=== PATIENT | female | born 1965 | race Caucasian/White ===

== ENCOUNTER → 2017-02-06 | Outpatient (REF) | payer BC ==
[~2017-02-06] MED LIST: ALLE180T33 PO; MOME50SP; OMEP40CA2 PO; ORTHTAB6 PO; VALA500T PO; VITA100T20 PO; ZINC10LO4 MT
== END ==
LOC: M SFHCPLAZ 09:38
PROVIDERS: ATTEND Nurse Practitioner Adult Health
DX: J02.9 Acute pharyngitis, unspecified (principal); R53.83 Other fatigue

== ENCOUNTER → 2017-03-27 | Outpatient (REF) | payer BC | LOC: M SFHCWAGY 08:19 | PROVIDERS: ATTEND Nurse Practitioner Women's Health | DX: Z12.4 Encounter for screening for malignant neoplasm of cervix (principal); R87.612 Low grade squamous intraepithelial lesion on cytologic smear of cervix (LGSIL) ==

== ENCOUNTER → 2017-03-27 | Outpatient (CLI) | payer BC ==
--- NOTE | 2017-03-27 10:13 | REPMRS ---
Patient History The patient states she had a clinical breast exam in 03/17 Family history of ovarian cancer in sister under age 50, breast cancer in mother at age 65, and breast cancer in maternal grandmother at age 50 or over. Taking hormonal contraceptives for 32 years. Digital Woman Screen Mammo: March 27, 2017 - Exam #: [id number] Bilateral CC and MLO view(s) were taken. Technologist: Dea Batres, Technologist Prior study comparison: March 05, 2016, digital woman screen mammo performed at [facility]. March 03, 2015, digital woman screen mammo performed at [facility]. FINDINGS: The breast tissue is heterogeneously dense. This may lower the sensitivity of mammography. There has been no change in the appearance of the mammogram from the prior studies. There is a moderate amount of residual fibroglandular tissue which is fairly symmetric. There is no interval development of dominant mass, areas of architectural distortion, or clustered microcalcification typical of malignancy. ASSESSMENT: BI-RADS/ACR category 1 mammogram. Negative. Given the dense breast parenchyma and family history, recommend MRI breasts. Recommendation Routine screening mammogram in 1 year (for women over age 40). This mammogram was interpreted with the aid of an FDA-approved computer-aided dectection system. Electronically Signed By: Gadiel Bhatt MD 03/27/17 [id number]
== END ==
LOC: M WHC 08:02
PROVIDERS: ATTEND Nurse Practitioner Women's Health
DX: Z12.31 Encounter for screening mammogram for malignant neoplasm of breast (principal)

== ENCOUNTER → 2017-03-31 | Outpatient (REF) | payer BC | LOC: M SFHCWAGY 14:06 | PROVIDERS: ATTEND Nurse Practitioner Women's Health | DX: R87.612 Low grade squamous intraepithelial lesion on cytologic smear of cervix (LGSIL) (principal); R87.810 Cervical high risk human papillomavirus (HPV) DNA test positive ==

== ENCOUNTER → 2017-07-21 | Outpatient (REF) | payer BC ==
[~2017-07-21] MED LIST changes: +ORTHTAB15 PO; -ORTHTAB6 PO; -VALA500T PO; +VALA500T2 PO
== END ==
LOC: M LAB REF 15:53
PROVIDERS: ATTEND Nurse Practitioner Adult Health
DX: J02.9 Acute pharyngitis, unspecified (principal)

== ENCOUNTER → 2017-09-19 | Outpatient (CLI) | payer BC ==
[2017-09-19 09:16] LABS: MEAN CORPUSCULAR HEMOGLOBIN 30.7 pg (27.0-33.0); MEAN CORPUSCULAR HGB CONC 33.6 g/dl (32.0-36.5); MEAN CORPUSCULAR VOLUME 91.4 fl (80.0-96.0); PLATELET COUNT, AUTOMATED 359 10^3/uL (150-450); RED CELL DISTRIBUTION WIDTH 12.1 % (11.5-14.5); WHITE BLOOD COUNT 5.9 10^3/uL (4.0-10.0)
[2017-09-19 10:01] LABS: ALBUMIN 3.5 GM/DL (3.2-5.2); ALBUMIN/GLOBULIN RATIO 1.09 (1.00-1.93); ALKALINE PHOSPHATASE 56 U/L (45-117); ALT/SGPT 23 U/L (12-78); ANION GAP 5 MEQ/L (8-16); AST/SGOT 17 U/L (15-37); BILIRUBIN,TOTAL 1.4 MG/DL (0.2-1.0); BLOOD UREA NITROGEN 14 MG/DL (7-18); CALCIUM LEVEL 8.8 MG/DL (8.5-10.1); CARBON DIOXIDE LEVEL 31 MEQ/L (21-32); CHLORIDE LEVEL 105 MEQ/L (98-107); CHOLESTEROL LEVEL 197 MG/DL (<200); FERRITIN 44 NG/ML (8-252); GLOMERULAR FILTRATION RATE > 60.0 (>58); GLUCOSE, FASTING 82 MG/DL (70-105); PERCENT SATURATION 47.7 % (13.2-45.0); POTASSIUM SERUM 4.7 MEQ/L (3.5-5.1); SODIUM LEVEL 141 MEQ/L (136-145); TOTAL IRON BINDING CAPACITY 348 UG/DL (250-450); TOTAL PROTEIN 6.7 GM/DL (6.4-8.2); TRIGLYCERIDES LEVEL 112 MG/DL (<150)
[2017-09-19 11:41] LABS: VITAMIN B12 LEVEL 677 PG/ML (247-911)
== END ==
LOC: M WUC 08:05
PROVIDERS: ATTEND Nurse Practitioner Adult Health
DX: Z00.00 Encounter for general adult medical examination without abnormal findings (principal); R53.83 Other fatigue; E55.9 Vitamin D deficiency, unspecified

== ENCOUNTER → 2017-12-09 | Outpatient (CLI) | payer BC ==
[2017-12-15 14:11] LABS: STREP PNEUMO TYPE 1 0.1 ug/mL (>1.3); STREP PNEUMO TYPE 12F 0.3 ug/mL (>1.3); STREP PNEUMO TYPE 14 1.5 ug/mL (>1.3); STREP PNEUMO TYPE 18C 2.5 ug/mL (>1.3); STREP PNEUMO TYPE 19A >30.4 ug/mL (>1.3); STREP PNEUMO TYPE 19F >42.9 ug/mL (>1.3); STREP PNEUMO TYPE 23F 0.5 ug/mL (>1.3); STREP PNEUMO TYPE 3 3.8 ug/mL (>1.3); STREP PNEUMO TYPE 4 0.4 ug/mL (>1.3); STREP PNEUMO TYPE 6B 17.3 ug/mL (>1.3); STREP PNEUMO TYPE 7F 0.7 ug/mL (>1.3); STREP PNEUMO TYPE 8 >27.2 ug/mL (>1.3); STREP PNEUMO TYPE 9N 9.9 ug/mL (>1.3); STREP PNEUMO TYPE 9V 10.5 ug/mL (>1.3)
== END ==
LOC: M WUC 17:24
DX: J32.9 Chronic sinusitis, unspecified (principal)

== ENCOUNTER → 2018-01-08 | Outpatient (REF) | payer BC ==
[2018-01-13 00:06] LABS: EBV PCR QUANTITATIVE Negative copies/mL (Negative)
== END ==
LOC: M SFHCPLAZ 12:05
DX: R53.83 Other fatigue (principal)
CPT/HCPCS: 87798

== ENCOUNTER → 2018-02-13 | Outpatient (CLI) | payer BC | LOC: M RAD 08:55 | DX: J01.01 Acute recurrent maxillary sinusitis (principal) | CPT/HCPCS: 70486 ==

== ENCOUNTER → 2018-04-23 | Outpatient (CLI) | payer BC | LOC: M WHC 08:09 | DX: Z12.31 Encounter for screening mammogram for malignant neoplasm of breast (principal); Z80.3 Family history of malignant neoplasm of breast | CPT/HCPCS: 77067 ==

== ENCOUNTER → 2018-05-11 | Outpatient (REF) | payer BC | LOC: M SFHCWAGY 15:31 | DX: R87.612 Low grade squamous intraepithelial lesion on cytologic smear of cervix (LGSIL) (principal) | CPT/HCPCS: 88304 ==

== ENCOUNTER → 2018-10-08 | Outpatient (CLI) | payer BC ==
[2018-10-08 09:53] LABS: ALBUMIN/GLOBULIN RATIO 1.43 (1.00-1.93); ALKALINE PHOSPHATASE 76 U/L (45-117); ALT/SGPT 33 U/L (12-78); ANION GAP 5 MEQ/L (8-16); AST/SGOT 28 U/L (7-37); BILIRUBIN,TOTAL 1.3 MG/DL (0.2-1.0); BLOOD UREA NITROGEN 20 MG/DL (7-18); CALCIUM LEVEL 9.9 MG/DL (8.5-10.1); CARBON DIOXIDE LEVEL 32 MEQ/L (21-32); CHLORIDE LEVEL 106 MEQ/L (98-107); CHOLESTEROL LEVEL 197 MG/DL (<200); CHOLESTEROL RISK RATIO 2.164 (<5); CREATININE FOR GFR 0.82 MG/DL (0.55-1.30); GLOMERULAR FILTRATION RATE > 60.0 (>51); GLUCOSE, FASTING 90 MG/DL (70-100); HDL CHOLESTEROL 91 MG/DL (>40); LDL CHOLESTEROL 95 MG/DL (<100); NON-HDL-C 106 MG/DL; POTASSIUM SERUM 5.1 MEQ/L (3.5-5.1); SODIUM LEVEL 143 MEQ/L (136-145); THYROID STIMULATING HORMONE 0.977 uIU/ML (0.358-3.740); TOTAL PROTEIN 6.8 GM/DL (6.4-8.2); TRIGLYCERIDES LEVEL 57 MG/DL (<150)
[2018-10-08 10:02] LABS: TOTAL 25(OH) VITAMIN D 46.2 NG/ML (30.0-100.0)
== END ==
LOC: M WUC 08:03
DX: Z00.00 Encounter for general adult medical examination without abnormal findings (principal); E55.9 Vitamin D deficiency, unspecified
CPT/HCPCS: 84443

== ENCOUNTER → 2018-10-26 | Outpatient (CLI) | payer BC ==
[~2018-10-26] MED LIST changes: -ALLE180T33 PO; -MOME50SP; -OMEP40CA2 PO; -ORTHTAB15 PO; +PROHANCE 279.3MG/ML 15ML VIAL (A9576) As Ordered; -VALA500T2 PO; -VITA100T20 PO; -ZINC10LO4 MT
== END ==
LOC: M RAD 08:17
DX: D24.1 Benign neoplasm of right breast (principal); N60.09 Solitary cyst of unspecified breast; Z80.3 Family history of malignant neoplasm of breast
CPT/HCPCS: A9576

== ENCOUNTER → 2018-12-18 | Outpatient (REF) | payer BC ==
[~2018-12-18] MED LIST changes: +ALLE180T33 PO; +MOME50SP; +OMEP40CA2 PO; +ORTH1TAB9 PO; -PROHANCE 279.3MG/ML 15ML VIAL (A9576) As Ordered; +VALA500T5 PO; +VITA100T20 PO; +ZINC10LO4 MT
[2018-12-18 17:40] LABS: FOLLICLE STIMULATING HORMONE 16.9 mIU/mL; LUTEINIZING HORMONE 3.9 mIU/mL
== END ==
LOC: M SFHCWAGY 14:43
PROVIDERS: ATTEND Nurse Practitioner Women's Health
DX: R23.2 Flushing (principal); N91.5 Oligomenorrhea, unspecified

== ENCOUNTER → 2019-04-23 | Outpatient (REF) | payer BC ==
[~2019-04-23] MED LIST changes: -VITA100T20 PO; +VITA100T51 PO
[2019-04-28 14:11] LABS: HPV HYBRID CAPTURE II Positive (Negative)
== END ==
LOC: M SFHCWAGY 08:52
PROVIDERS: ATTEND Nurse Practitioner Women's Health
DX: R87.612 Low grade squamous intraepithelial lesion on cytologic smear of cervix (LGSIL) (principal); Z12.4 Encounter for screening for malignant neoplasm of cervix
CPT/HCPCS: 87624; G0123

== ENCOUNTER → 2019-04-23 | Outpatient (CLI) | payer BC ==
--- NOTE | 2019-04-23 10:22 | REPMRS ---
Patient History The patient states she had a clinical breast exam in 03/2019. Family history of breast cancer at age 65 in mother, breast cancer at age 50 or over in maternal grandmother, ovarian cancer under age 50 in sister, endometrial cancer at age 50 or over in sister. Taking hormonal contraceptives for 34 years. 3D TOMOSYNTHESIS WAS PERFORMED. Digital Woman Screen Mammo: April 23, 2019 - Exam #: [id number] Bilateral CC and MLO view(s) were taken. Technologist: Dea Batres, Technologist Prior study comparison: April 23, 2018, digital woman screen mammo performed at [facility]. March 27, 2017, digital woman screen mammo performed at [facility]. FINDINGS: The breast tissue is heterogeneously dense. This may lower the sensitivity of mammography. There has been no change in the appearance of the mammogram from the prior studies. There is a moderate amount of residual fibroglandular tissue which is fairly symmetric. There is no interval development of dominant mass, areas of architectural distortion, or clustered microcalcification typical of malignancy. Assessment: BI-RADS/ACR category 1 mammogram. Negative Mammogram. Recommendation Routine screening mammogram in 1 year (for women over age 40). This mammogram was interpreted with the aid of an FDA-approved computer-aided dectection system. THE LIFETIME RISK OF BREAST CANCER IS 21.7 %, THEREFORE SUPPLEMENTAL SCREENING MRI OF THE BREASTS IS RECOMMENDED. Electronically Signed By: Gadiel Bhatt MD 04/23/19 [id number]
== END ==
LOC: M WHC 08:36
PROVIDERS: ATTEND Nurse Practitioner Women's Health
DX: Z12.31 Encounter for screening mammogram for malignant neoplasm of breast (principal); Z80.3 Family history of malignant neoplasm of breast; Z80.41 Family history of malignant neoplasm of ovary

== ENCOUNTER → 2019-05-28 | Outpatient (REF) | payer BC | LOC: M SFHCWAGY 10:24 | PROVIDERS: ATTEND Family Medicine | DX: R87.619 Unspecified abnormal cytological findings in specimens from cervix uteri (principal) ==

== ENCOUNTER → 2019-10-25 | Outpatient (CLI) | payer BC ==
[~2019-10-25] MED LIST changes: -OMEP40CA2 PO; +OMEP40CA97 PO; +PROHANCE 279.3MG/ML 15ML VIAL (A9576) As Ordered ONE
--- NOTE | 2019-10-25 10:59 | REP ---
MRI BILATERAL BREASTS WITH AND WITHOUT CONTRAST: COMPARISON: 10/26/2018 and mammogram 04/23/2019. [facility] lifetime risk of breast cancer 21.7%. TECHNIQUE: Multiple sequences obtained in the axial, coronal, and sagittal planes prior to and following the intravenous administration of 11 mL ProHance. Images are evaluated in the Stepcase software including dynamic post IV gadolinium axial T1 fat sat images, CAD images, color overlie images, subtraction images as well as MIP reconstruction images. Once again there is moderate fibroglandular tissue pattern bilaterally as seen on prior study. There are a few subcentimeter cysts in each breast. There is no axillary adenopathy. There is mild background parenchymal enhancement bilaterally. There is no suspicious enhancing mass or morphologic abnormality. IMPRESSION: BIRADS category 2 benign bilateral breast MRI. A few subcentimeter cysts scattered throughout both breasts. No suspicious enhancing mass or morphologic abnormality. Followup MRI of the breasts recommended in 1 year. Electronically Signed by Gadiel Bhatt MD 10/25/2019 02:54 P
== END ==
LOC: M RAD 07:59
PROVIDERS: ATTEND Nurse Practitioner Women's Health
DX: Z12.31 Encounter for screening mammogram for malignant neoplasm of breast (principal); Z80.3 Family history of malignant neoplasm of breast
CPT/HCPCS: A9576; C8908

== ENCOUNTER → 2019-11-09 | Outpatient (REF) | payer BC ==
[~2019-11-09] MED LIST changes: -PROHANCE 279.3MG/ML 15ML VIAL (A9576) As Ordered ONE
== END ==
LOC: M SFHCWAGY 17:13
PROVIDERS: ATTEND Nurse Practitioner Women's Health
DX: R30.0 Dysuria (principal)

== ENCOUNTER → 2020-03-29 | Outpatient (CLI) | payer BC | LOC: M LABSMTC 13:15 | PROVIDERS: ATTEND Family Medicine | DX: Z11.59 Encounter for screening for other viral diseases (principal); Z20.828 Contact with and (suspected) exposure to other viral communicable diseases ==

== ENCOUNTER → 2020-05-24 | Outpatient (REF) | payer BC ==
[2020-05-24 18:05] LABS: BASO % 0.6 % (0.0-1.0); EOS % 0.8 % (0.0-3.0); HEMOGLOBIN 13.3 g/dl (12.0-15.5); LYMPH # 1.9 10^3/uL (1.5-5.0); LYMPH % 36.3 % (24.0-44.0); MEAN CORPUSCULAR HEMOGLOBIN 32.3 pg (27.0-33.0); MEAN CORPUSCULAR HGB CONC 33.3 g/dl (32.0-36.5); MEAN CORPUSCULAR VOLUME 97.1 fl (80.0-96.0); MONO # 0.6 10^3/uL (0.0-0.8); MONO % 10.6 % (0.0-5.0); NEUTROPHILS # 2.7 10^3/uL (1.5-8.5); NEUTROPHILS % 51.5 % (36.0-66.0); PLATELET COUNT, AUTOMATED 344 10^3/uL (150-450); RED BLOOD COUNT 4.12 10^6/uL (4.00-5.40); WHITE BLOOD COUNT 5.3 10^3/uL (4.0-10.0)
[2020-05-24 18:10] LABS: MONO REFLEX EBV COMP NEGATIVE (NEGATIVE)
[2020-05-24 18:13] LABS: FREE T4 0.99 NG/DL (0.76-1.46)
[2020-05-27 13:07] LABS: EBV VIRAL CAPSID AG IgG >600.0 U/mL (0.0-17.9); EBV VIRAL CAPSID AG IgM <36.0 U/mL (0.0-35.9)
== END ==
LOC: M SFHCPLAZ 15:15
PROVIDERS: ATTEND Family Medicine
DX: R53.83 Other fatigue (principal)

== ENCOUNTER → 2020-06-26 | Outpatient (CLI) | payer BC ==
--- NOTE | 2020-07-20 15:43 | REPMRS ---
Patient History The patient states she had a clinical breast exam in May 2020. Family history of breast cancer at age 65 in mother, breast cancer at age 50 or over in maternal grandmother, ovarian cancer under age 50 in sister, endometrial cancer at age 50 or over in sister. Taking hormonal contraceptives for 34 years. Digital Woman Screen Mammo: June 26, 2020 - Exam #: [id number] Bilateral CC and MLO view(s) were taken. Technologist: Emy Handy, Technologist Prior study comparison: April 23, 2019, bilateral digital woman screen mammo performed at [facility]. April 23, 2018, digital woman screen mammo performed at [facility]. March 27, 2017, digital woman screen mammo performed at [facility]. FINDINGS: The breast tissue is heterogeneously dense. This may lower the sensitivity of mammography. The Volpara volumetric breast density category is: C. There is a moderate amount of heterogeneously dense fibroglandular tissue which is fairly symmetric. There is no interval development of dominant mass, architectural distortion, or grouped microcalcification typical of malignancy. There has been no change in the appearance of the mammogram from the prior studies. 3-D tomosynthesis shows no additional findings. Report was delayed due to a malware attack on this facility. Assessment: BI-RADS/ACR category 1 mammogram. Negative Mammogram. Recommendation Breast MRI of both breasts in 6 months. Routine screening mammogram of both breasts in 1 year (for women over age 40). This patient's Lifetime Breast Cancer RIsk is estimated at 21.3 %. Annual screening Breast MRI scanniing is recommended for patient's whose lifetime risk assessment is over 20%. This mammogram was interpreted with the aid of an FDA-approved computer-aided dectection system. Electronically Signed By: Anthony Quezada MD 07/20/20 [id number]
== END ==
LOC: M WHC 13:47
PROVIDERS: ATTEND Nurse Practitioner Women's Health
DX: Z12.31 Encounter for screening mammogram for malignant neoplasm of breast (principal); Z80.3 Family history of malignant neoplasm of breast; Z80.41 Family history of malignant neoplasm of ovary; Z80.49 Family history of malignant neoplasm of other genital organs

== ENCOUNTER → 2020-06-26 | Outpatient (REF) | payer BC | LOC: M SFHCWAGY 19:40 | PROVIDERS: ATTEND Nurse Practitioner Women's Health | DX: Z12.4 Encounter for screening for malignant neoplasm of cervix (principal) | CPT/HCPCS: 87624; G0123 ==

== ENCOUNTER → 2020-09-27 | Outpatient (CLI) | payer BC ==
[2020-09-27 11:03] LABS: ALBUMIN 3.7 GM/DL (3.2-5.2); ALT/SGPT 35 U/L (12-78); BILIRUBIN,TOTAL 0.9 MG/DL (0.2-1.0); BLOOD UREA NITROGEN 16 MG/DL (7-18); CALCIUM LEVEL 9.6 MG/DL (8.5-10.1); CARBON DIOXIDE LEVEL 32 MEQ/L (21-32); CHLORIDE LEVEL 107 MEQ/L (98-107); CHOLESTEROL LEVEL 222 MG/DL (<200); CHOLESTEROL RISK RATIO 2.413 (<5); CREATININE FOR GFR 0.81 MG/DL (0.55-1.30); GLOMERULAR FILTRATION RATE > 60.0 (>51); GLUCOSE, FASTING 82 MG/DL (70-100); HDL CHOLESTEROL 92 MG/DL (>40); LDL CHOLESTEROL 115 MG/DL (<100); NON-HDL-C 130 MG/DL; POTASSIUM SERUM 4.3 MEQ/L (3.5-5.1); SODIUM LEVEL 141 MEQ/L (136-145); TOTAL PROTEIN 6.8 GM/DL (6.4-8.2); TRIGLYCERIDES LEVEL 76 MG/DL (<150)
[2020-09-27 11:21] LABS: TOTAL 25(OH) VITAMIN D 63.5 NG/ML (30.0-100.0)
== END ==
LOC: M WUC 08:03
PROVIDERS: ATTEND Nurse Practitioner Adult Health
DX: Z00.00 Encounter for general adult medical examination without abnormal findings (principal); E55.9 Vitamin D deficiency, unspecified; Z13.220 Encounter for screening for lipoid disorders

== ENCOUNTER → 2021-01-26 | Outpatient (CLI) | payer BC ==
[~2021-01-26] MED LIST changes: +PROHANCE 279.3MG/ML 15ML VIAL As Ordered ONE
--- NOTE | 2021-01-26 10:43 | REP ---
INDICATION: FAMILY HX-BREST MALIGNANCY. Dense breast tissue on mammography. COMPARISON: Comparison breast MRI study 25 October 2019 and 26 October 2018. Comparison mammography 26 June 2020. TECHNIQUE: Three [place] MRI imaging was performed with a dedicated breast coil. Axial, coronal, and sagittal T1 and T2 weighted scans were obtained with and without fat saturation in the usual fashion. The study includes dynamically acquired post gadolinium-enhanced imaging with image subtraction. Maximum intensity projection and multi planar reformation imaging is included as well. This study is interpreted with the aid of PAAY, an FDA approved computer aided detection (CAD) software program, on a dedicated breast MRI workstation. The gadolinium enhancement dose is 11 mL of intravenous ProHance. FINDINGS: There is a moderate amount of fibroglandular tissue bilaterally corresponding with the mammographic pattern. There is mild background parenchymal enhancement. There is a T1 hyperintense T2 hypointense nonenhancing cyst in the right medial breast anterior 3rd. There is no evidence of axillary lymphadenopathy or other significant breast cystic change. High-resolution pre and post-contrast T1 and T2 weighted scans show no suspicious morphologic abnormality in either breast. Dynamically acquired sequential postcontrast images show no suspicious area of enhancement and washout kinetics in either breast to suggest malignancy. Subtraction images show no additional abnormality. IMPRESSION: BI-RADS category 2 benign bilateral breast MRI findings. <Electronically signed by Anthony Quezada > 01/26/21 [id number]
== END ==
LOC: M RAD 07:31
PROVIDERS: ATTEND Nurse Practitioner Women's Health
DX: Z12.31 Encounter for screening mammogram for malignant neoplasm of breast (principal); R92.2 Inconclusive mammogram; Z80.3 Family history of malignant neoplasm of breast
CPT/HCPCS: A9576; C8908

== ENCOUNTER → 2021-03-02 | Outpatient (CLI) | payer SELFPAY ==
[~2021-03-02] MED LIST changes: -PROHANCE 279.3MG/ML 15ML VIAL As Ordered ONE
== END ==
LOC: M LABSMTC 12:13
PROVIDERS: ATTEND Pediatrics
DX: Z11.52 Encounter for screening for COVID-19 (principal)

== ENCOUNTER → 2021-07-18 | Outpatient (REF) | payer BC ==
[~2021-07-18] MED LIST changes: +OMEP40CA4 PO; -OMEP40CA97 PO
== END ==
LOC: M SFHCWAGY 13:12
PROVIDERS: ATTEND Nurse Practitioner Women's Health
DX: Z12.4 Encounter for screening for malignant neoplasm of cervix (principal); N95.2 Postmenopausal atrophic vaginitis

== ENCOUNTER → 2021-07-18 | Outpatient (CLI) | payer BC ==
--- NOTE | 2021-07-18 09:03 | REP ---
INDICATION: Z12.31 SCREENING MAMMO. COMPARISON: Multiple TECHNIQUE: Digital screening mammography was carried out bilaterally in the CC and MLO projections and compared to the prior exams. Both 2D and 3D modalities were utilized. By history, the patient has no complaints of a palpable breast abnormality or other significant breast complaints. FINDINGS: The breasts are unchanged in size and shape. Once again, dense heterogenous somewhat nodular fibroglandular elements are seen bilaterally to such a degree that the sensitivity of the mammogram in detecting cancer is decreased. In the lower inner quadrant of the right breast there is a potential norah density. No other suspicious features are seen in either breast. Benign calcifications are again seen bilaterally. There is no skin thickening or nipple retraction. The Volpara volumetric breast density pattern is C. IMPRESSION: BIRADS/ACR category 0 mammogram. Potential norah density in the right breast as described above for which diagnostic digital DBT spot compression views are recommended in the CC and MLO projections along with ultrasonography if indicated. This patient's Tyrer-Cuzick lifetime breast cancer risk assessment score is 24.0%. Secondary to the patient's breast density score and high Tyrer Phoenix number breast MRI is indicated. This mammogram was interpreted with the aid of an FDA-approved computer-aided detection system. The patient states she had a clinical breast exam in July 2021. The patient letter being requested is M0. RECOMMENDATION: As above <Electronically signed by Lyndon Hernandez > 07/18/21 0900
== END ==
LOC: M WHC 07:48
PROVIDERS: ATTEND Nurse Practitioner Women's Health
DX: Z12.31 Encounter for screening mammogram for malignant neoplasm of breast (principal)

== ENCOUNTER 2021-07-30 19:49 | Emergency (ER) | payer BC ==
[~2021-07-30] VITALS: Ht 162.6 cm; Wt 56.9 kg
[2021-07-30 19:49] VITALS: BP 178/88
== END 2021-07-30 21:52 | disposition left against medical advice (07) ==
LOC: M ED 19:49
DX: Z53.21 Procedure and treatment not carried out due to patient leaving prior to being seen by health care provider (principal)

== ENCOUNTER → 2021-07-31 | Outpatient (CLI) | payer BC ==
--- NOTE | 2021-07-31 12:54 | REP ---
INDICATION: DIAG R BREAST MAMMO/IRASEMA DENSITY; RIGHT BREAST/IRASEMA DENSITY. COMPARISON: Comparison mammography July 18, 2021 as well as April 23, 2019 and June 26, 2020. TECHNIQUE: Magnified focal spot-compression CC, true mL, and MLO views of the right breast are obtained. Spot compression 3D tomography is deployed. Targeted right breast sonography is carried out. This mammogram was interpreted with the aid of an FDA-approved computer-aided detection system. FINDINGS: Breast parenchyma is heterogeneously dense as before. The area in question in the inferior and medial aspect of the right breast compresses away to stromal elements which are felt to be mammographically unchanged from the prior comparison studies from 2019 and April 23, 2019. Spot compression 3D tomographic images show no additional abnormality. There are 2 coarse calcifications in this quadrant of the left breast. The Volpara volumetric breast density pattern is C. Targeted ultrasound: Targeted right breast sonography is performed from 4:00 to 6:00. Fairly homogeneous fibroglandular echotexture is seen. There is a 7 x 7 x 4 mm cyst 2.5 cm from the nipple in the 4 o'clock position. No other abnormality is seen. IMPRESSION: BIRADS/ACR category 2 benign right breast mammographic and sonographic findings. This patient's Tyrer-Cuzick lifetime breast cancer risk assessment score is 24.0 %. Enhanced screening in the form of annual bilateral breast MRI scanning is warranted. Bilateral breast MRI scanning is recommended annually, beginning 6 months from now. %. RECOMMENDATION: Repeat screening mammography recommended 1 year (for women over 40). Bilateral screening breast MRI study recommended in 6 months. The patient letter being requested is M1 dense. <Electronically signed by Anthony Quezada > 07/31/21 [id number]
== END ==
LOC: M WHC 09:49
PROVIDERS: ATTEND Nurse Practitioner Women's Health
DX: R92.1 Mammographic calcification found on diagnostic imaging of breast (principal); N60.01 Solitary cyst of right breast
CPT/HCPCS: 76642; 77065; G0279

== ENCOUNTER → 2021-09-29 | Outpatient (CLI) | payer BC ==
[2021-09-29 09:48] LABS: HEMATOCRIT 42.4 % (36.0-47.0); HEMOGLOBIN 14.1 g/dl (12.0-15.5); MEAN CORPUSCULAR HEMOGLOBIN 30.3 pg (27.0-33.0); MEAN CORPUSCULAR HGB CONC 33.3 g/dl (32.0-36.5); PLATELET COUNT, AUTOMATED 270 10^3/uL (150-450); RED BLOOD COUNT 4.66 10^6/uL (4.00-5.40); WHITE BLOOD COUNT 5.1 10^3/uL (4.0-10.0)
[2021-09-29 10:14] LABS: ALBUMIN 3.7 GM/DL (3.2-5.2); ALT/SGPT 31 U/L (12-78); BILIRUBIN,TOTAL 1.7 MG/DL (0.2-1.0); BLOOD UREA NITROGEN 18 MG/DL (7-18); CALCIUM LEVEL 9.7 MG/DL (8.5-10.1); CARBON DIOXIDE LEVEL 31 MEQ/L (21-32); CHLORIDE LEVEL 106 MEQ/L (98-107); CHOLESTEROL LEVEL 210 MG/DL (<200); CHOLESTEROL RISK RATIO 2.019 (<5); CREATININE FOR GFR 0.78 MG/DL (0.55-1.30); FERRITIN 54 NG/ML (8-252); FREE T4 1.07 NG/DL (0.76-1.46); GLOMERULAR FILTRATION RATE > 60.0 (>51); GLUCOSE, FASTING 89 MG/DL (70-100); HDL CHOLESTEROL 104 MG/DL (>40); IRON (FE) 67 UG/DL (50-170); LDL CHOLESTEROL 93 MG/DL (<100); NON-HDL-C 106 MG/DL; PERCENT SATURATION 21.3 % (13.2-45.0); POTASSIUM SERUM 4.5 MEQ/L (3.5-5.1); SODIUM LEVEL 140 MEQ/L (136-145); TOTAL IRON BINDING CAPACITY 315 UG/DL (250-450); TOTAL PROTEIN 6.6 GM/DL (6.4-8.2); TRIGLYCERIDES LEVEL 65 MG/DL (<150)
[2021-10-01 12:28] LABS: TOTAL 25(OH) VITAMIN D 53.4 NG/ML (30.0-100.0)
== END ==
LOC: M LAB 08:34
PROVIDERS: ATTEND Nurse Practitioner Adult Health
DX: E55.9 Vitamin D deficiency, unspecified (principal); R53.83 Other fatigue; Z13.220 Encounter for screening for lipoid disorders

== ENCOUNTER → 2021-11-30 | Outpatient (CLI) | payer BC | LOC: M LABSMTC 12:43 | PROVIDERS: ATTEND Pediatrics | DX: Z20.822 Contact with and (suspected) exposure to COVID-19 (principal) ==

== ENCOUNTER → 2021-12-24 | Outpatient (REF) | payer BC ==
[~2021-12-24] MED LIST changes: -MOME50SP; +NASO50SP3
== END ==
LOC: M SFHCPLAZ 16:59
PROVIDERS: ATTEND Physician Assistant
DX: R09.89 Other specified symptoms and signs involving the circulatory and respiratory systems (principal)

== ENCOUNTER 2022-06-26 11:07 | Outpatient (RCR) | payer BC | END 2022-06-30 | LOC: M OT 11:07 | PROVIDERS: ATTEND Orthopaedic Surgery | DX: Z96.691 Finger-joint replacement of right hand (principal) ==

== ENCOUNTER 2022-07-04 08:51 | Emergency (ER) | payer BC, OTHER ==
[~2022-07-04] VITALS: Ht 162.6 cm; Wt 57.3 kg
[2022-07-04] MEDS ORDERED: NS 1,000 ML IV ONE (11:40)
[2022-07-04] MEDS ORDERED: MECLIZINE 25 MG TABLET PO ONE (11:40)
[2022-07-04] MEDS ORDERED: KETOROLAC 30 MG/ML 1ML VIAL IV ONE (12:35)
[2022-07-04 12:53] LABS: BASO % 0.9 % (0.0-1.0); EOS # 0.1 10^3/uL (0.0-0.5); EOS % 1.1 % (0.0-3.0); HEMATOCRIT 43.4 % (36.0-47.0); HEMOGLOBIN 14.9 g/dl (12.0-15.5); LYMPH # 1.6 10^3/uL (1.5-5.0); LYMPH % 37.3 % (24.0-44.0); MEAN CORPUSCULAR HEMOGLOBIN 30.3 pg (27.0-33.0); MEAN CORPUSCULAR HGB CONC 34.3 g/dl (32.0-36.5); MEAN CORPUSCULAR VOLUME 88.2 fl (80.0-96.0); MONO # 0.4 10^3/uL (0.0-0.8); MONO % 9.4 % (2.0-8.0); NEUTROPHILS # 2.2 10^3/uL (1.5-8.5); NEUTROPHILS % 50.8 % (36.0-66.0); PLATELET COUNT, AUTOMATED 325 10^3/uL (150-450); RED BLOOD COUNT 4.92 10^6/uL (4.00-5.40); WHITE BLOOD COUNT 4.4 10^3/uL (4.0-10.0)
[2022-07-04 13:39] LABS: FREE THYROXINE INDEX 3.9 % (1.3-4.8); THYROID STIMULATING HORMONE 1.37 uIU/ML (0.358-3.740); THYROXINE (T4) 10.8 UG/DL (4.5-12.0)
[2022-07-04] MEDS ORDERED: METH-1165 PO (14:08)
[2022-07-04] MEDS ORDERED: NAPR-837 PO (14:08)
[2022-07-04] MEDS ORDERED: ANEC4CRE3 TOP (14:08)
[2022-07-04 14:16] VITALS: BP 159/84
== END 2022-07-04 14:23 | disposition home or self-care (01) ==
LOC: M ED 08:51
DX: M54.2 Cervicalgia (principal); R42 Dizziness and giddiness; M79.641 Pain in right hand; V43.52XA Car driver injured in collision with other type car in traffic accident, initial encounter; Z79.899 Other long term (current) drug therapy; Z88.8 Allergy status to other drugs, medicaments and biological substances
CPT/HCPCS: 36415; 70450; 72125; 80047; 84436; 84443; 84479; 85025; 96361; 96374; 99284; J1885

== ENCOUNTER 2022-07-10 13:14 | Outpatient (RCR) | payer OTHER, BC ==
[~2022-07-10 13:14] MED LIST changes: +ANEC4CRE3 TOP; +METH-1165 PO; +NAPR-837 PO
== END 2022-07-31 ==
LOC: M OT 13:14
PROVIDERS: ATTEND Orthopaedic Surgery
DX: Z96.691 Finger-joint replacement of right hand (principal)

== ENCOUNTER 2022-08-07 13:08 | Outpatient (RCR) | payer OTHER, BC | END 2022-08-30 | LOC: M OT 13:08 | PROVIDERS: ATTEND Orthopaedic Surgery | DX: Z96.691 Finger-joint replacement of right hand (principal) ==

== ENCOUNTER → 2022-10-15 | Outpatient (REF) | payer BC | LOC: M SFHCWAGY 10:09 | PROVIDERS: ATTEND Obstetrics & Gynecology | DX: Z12.4 Encounter for screening for malignant neoplasm of cervix (principal); R87.610 Atypical squamous cells of undetermined significance on cytologic smear of cervix (ASC-US) | CPT/HCPCS: 87624; G0123 ==

== ENCOUNTER → 2022-10-15 | Outpatient (CLI) | payer BC | LOC: M WHC 07:06 | PROVIDERS: ATTEND Obstetrics & Gynecology | DX: Z12.31 Encounter for screening mammogram for malignant neoplasm of breast (principal); Z80.3 Family history of malignant neoplasm of breast; Z80.41 Family history of malignant neoplasm of ovary; Z80.49 Family history of malignant neoplasm of other genital organs ==

== ENCOUNTER → 2022-12-31 | Outpatient (CLI) | payer BC ==
[2022-12-31 10:30] LABS: HEMATOCRIT 44.6 % (36.0-47.0); HEMOGLOBIN 14.5 g/dl (12.0-15.5); MEAN CORPUSCULAR HGB CONC 32.5 g/dl (32.0-36.5); MEAN CORPUSCULAR VOLUME 92.1 fl (80.0-96.0); PLATELET COUNT, AUTOMATED 308 10^3/uL (150-450); RED BLOOD COUNT 4.84 10^6/uL (4.00-5.40)
[2022-12-31 11:03] LABS: ALBUMIN 3.8 G/DL (3.2-5.2); ALKALINE PHOSPHATASE 75 U/L (46-116); ALT/SGPT 25 U/L (7.0-40); AST/SGOT 27 U/L (<34); BILIRUBIN,TOTAL 1.1 MG/DL (0.3-1.2); BLOOD UREA NITROGEN 18 MG/DL (9-23); CALCIUM LEVEL 9.5 MG/DL (8.5-10.1); CARBON DIOXIDE LEVEL 31 MMOL/L (20-31); CHLORIDE LEVEL 107 MMOL/L (98-107); CHOLESTEROL LEVEL 206 MG/DL (<200); CHOLESTEROL RISK RATIO 2.39 (<5); CREATININE FOR GFR 0.72 MG/DL (0.55-1.30); GLOMERULAR FILTRATION RATE > 60.0 (>51); GLUCOSE, FASTING 85 MG/DL (60-100); HDL CHOLESTEROL 85.9 MG/DL (>40); LDL CHOLESTEROL 106.7 MG/DL (<100); NON-HDL-C 120 MG/DL; POTASSIUM SERUM 4.8 MMOL/L (3.5-5.1); SODIUM LEVEL 142 MMOL/L (136-145); TOTAL 25(OH) VITAMIN D 62.3 NG/ML (20.0-100.0); TOTAL PROTEIN 6.7 G/DL (5.7-8.2); TRIGLYCERIDES LEVEL 67 MG/DL (<150); VITAMIN B12 LEVEL 992 PG/ML (211-911)
== END ==
LOC: M PLALAB 08:16
PROVIDERS: ATTEND Nurse Practitioner Adult Health
DX: Z00.00 Encounter for general adult medical examination without abnormal findings (principal); Z13.220 Encounter for screening for lipoid disorders; E55.9 Vitamin D deficiency, unspecified; R53.83 Other fatigue; E78.2 Mixed hyperlipidemia

== ENCOUNTER → 2023-04-11 | Outpatient (CLI) | payer OTHER ==
[~2023-04-11] MED LIST changes: +PROHANCE 279.3MG/ML 15ML VIAL ONE
== END ==
LOC: M PLAIMG 10:18
PROVIDERS: ATTEND Obstetrics & Gynecology
DX: Z12.39 Encounter for other screening for malignant neoplasm of breast (principal)
CPT/HCPCS: A9576; C8908

== ENCOUNTER → 2023-07-15 | Outpatient (CLI) | payer OTHER ==
[~2023-07-15] MED LIST changes: -PROHANCE 279.3MG/ML 15ML VIAL ONE
== END ==
LOC: M WUC 15:42
PROVIDERS: ATTEND Nurse Practitioner Adult Health
DX: M25.561 Pain in right knee (principal)

== ENCOUNTER → 2023-12-18 | Outpatient (REF) | payer OTHER | LOC: M LAB REF 16:16 | PROVIDERS: ATTEND Nurse Practitioner Family | DX: R30.0 Dysuria (principal) ==

== ENCOUNTER → 2023-12-22 | Outpatient (REF) | payer OTHER | LOC: M SFHCWAGY 17:57 | PROVIDERS: ATTEND Obstetrics & Gynecology | DX: Z12.4 Encounter for screening for malignant neoplasm of cervix (principal) | CPT/HCPCS: 87624; G0123 ==

== ENCOUNTER → 2023-12-22 | Outpatient (CLI) | payer OTHER | LOC: M WHC 14:01 | PROVIDERS: ATTEND Obstetrics & Gynecology | DX: Z12.31 Encounter for screening mammogram for malignant neoplasm of breast (principal); Z80.3 Family history of malignant neoplasm of breast; Z80.41 Family history of malignant neoplasm of ovary; Z80.49 Family history of malignant neoplasm of other genital organs; R92.333 Mammographic heterogeneous density, bilateral breasts ==

== ENCOUNTER → 2023-12-31 | Outpatient (CLI) | payer OTHER ==
[2023-12-31 11:17] LABS: HEMATOCRIT 44.3 % (36.0-47.0); HEMOGLOBIN 14.5 g/dl (12.0-15.5); MEAN CORPUSCULAR HEMOGLOBIN 29.8 pg (27.0-33.0); MEAN CORPUSCULAR HGB CONC 32.7 g/dl (32.0-36.5); MEAN CORPUSCULAR VOLUME 91.2 fl (80.0-96.0); PLATELET COUNT, AUTOMATED 332 10^3/uL (150-450); RED BLOOD COUNT 4.86 10^6/uL (4.00-5.40); WHITE BLOOD COUNT 5.2 10^3/uL (4.0-10.0)
[2023-12-31 11:37] LABS: ALBUMIN 3.8 G/DL (3.2-5.2); ALKALINE PHOSPHATASE 78 U/L (46-116); ALT/SGPT 28 U/L (7.0-40); AST/SGOT 25 U/L (<34); BILIRUBIN,TOTAL 1.4 MG/DL (0.3-1.2); BLOOD UREA NITROGEN 19 MG/DL (9-23); CARBON DIOXIDE LEVEL 32 MMOL/L (20-31); CHLORIDE LEVEL 106 MMOL/L (98-107); CHOLESTEROL LEVEL 236 MG/DL (<200); CHOLESTEROL RISK RATIO 2.66 (<5); CREATININE FOR GFR 0.79 MG/DL (0.55-1.30); FERRITIN 23.1 NG/ML (7.3-270.7); GLOMERULAR FILTRATION RATE > 60.0 (>51); GLUCOSE, FASTING 79 MG/DL (60-100); HDL CHOLESTEROL 88.5 MG/DL (>40); LDL CHOLESTEROL 130.5 MG/DL (<100); MAGNESIUM LEVEL 2.2 MG/DL (1.8-2.4); NON-HDL-C 147.5 MG/DL; POTASSIUM SERUM 5.4 MMOL/L (3.5-5.1); SODIUM LEVEL 143 MMOL/L (136-145); THYROID STIMULATING HORMONE 2.034 uIU/ML (0.55-4.78); TOTAL PROTEIN 6.8 G/DL (5.7-8.2); TRIGLYCERIDES LEVEL 85 MG/DL (<150)
[2023-12-31 11:38] LABS: TOTAL 25(OH) VITAMIN D 65.8 NG/ML (20.0-100.0)
== END ==
LOC: M PLALAB 08:41
PROVIDERS: ATTEND Nurse Practitioner Adult Health
DX: Z00.00 Encounter for general adult medical examination without abnormal findings (principal); E78.2 Mixed hyperlipidemia; R79.0 Abnormal level of blood mineral; Z13.220 Encounter for screening for lipoid disorders; E55.9 Vitamin D deficiency, unspecified

== ENCOUNTER → 2024-02-25 | Outpatient (REF) | payer OTHER | LOC: M SFHCPLAZ 16:48 | PROVIDERS: ATTEND Physician Assistant | DX: R09.81 Nasal congestion (principal) ==

== ENCOUNTER → 2024-06-23 | Outpatient (CLI) | payer OTHER ==
[~2024-06-23] MED LIST changes: +PROHANCE 279.3MG/ML 15ML VIAL ONE
== END ==
LOC: M PLAIMG 12:21
PROVIDERS: ATTEND Obstetrics & Gynecology
DX: Z91.89 Other specified personal risk factors, not elsewhere classified (principal); Z80.3 Family history of malignant neoplasm of breast
CPT/HCPCS: A9576; C8908

== ENCOUNTER → 2024-08-03 | Outpatient (REF) | payer OTHER ==
[~2024-08-03] MED LIST changes: -PROHANCE 279.3MG/ML 15ML VIAL ONE
== END ==
LOC: M SFHCPLAZ 17:12
PROVIDERS: ATTEND Physician Assistant Medical
DX: J06.9 Acute upper respiratory infection, unspecified (principal)

== ENCOUNTER → 2024-10-19 | Outpatient (REF) | payer OTHER | LOC: M SFHCPLAZ 12:44 | PROVIDERS: ATTEND Physician Assistant Medical | DX: J06.9 Acute upper respiratory infection, unspecified (principal) ==

== ENCOUNTER → 2024-12-23 | Outpatient (CLI) | payer OTHER | LOC: M WHC 10:14 | PROVIDERS: ATTEND Obstetrics & Gynecology | DX: Z12.31 Encounter for screening mammogram for malignant neoplasm of breast (principal) ==

== ENCOUNTER → 2024-12-29 | Outpatient (CLI) | payer OTHER ==
[2024-12-29 10:39] LABS: HEMATOCRIT 41.5 % (36.0-47.0); HEMOGLOBIN 13.7 g/dl (12.0-15.5); MEAN CORPUSCULAR HEMOGLOBIN 29.5 pg (27.0-33.0); MEAN CORPUSCULAR VOLUME 89.2 fl (80.0-96.0); PLATELET COUNT, AUTOMATED 286 10^3/uL (150-450); RED BLOOD COUNT 4.65 10^6/uL (4.00-5.40); WHITE BLOOD COUNT 3.7 10^3/uL (4.0-10.0)
[2024-12-29 10:50] LABS: ALBUMIN 3.8 G/DL (3.2-5.2); ALKALINE PHOSPHATASE 71 U/L (35-104); ALT/SGPT 24 U/L (7.0-40); AST/SGOT 21 U/L (<34); BILIRUBIN,TOTAL 1.1 MG/DL (0.3-1.2); BLOOD UREA NITROGEN 22 MG/DL (9-23); CALCIUM LEVEL 9.4 MG/DL (8.5-10.1); CARBON DIOXIDE LEVEL 31 MMOL/L (20-31); CHLORIDE LEVEL 108 MMOL/L (98-107); CHOLESTEROL LEVEL 203 MG/DL (<200); CHOLESTEROL RISK RATIO 2.51 (<5); CREATININE FOR GFR 0.85 MG/DL (0.55-1.30); GLOMERULAR FILTRATION RATE > 60.0 (>51); GLUCOSE, FASTING 82 MG/DL (60-100); HDL CHOLESTEROL 80.6 MG/DL (>40); LDL CHOLESTEROL 107.2 MG/DL (<100); NON-HDL-C 122.4 MG/DL; POTASSIUM SERUM 4.6 MMOL/L (3.5-5.1); SODIUM LEVEL 146 MMOL/L (136-145); TOTAL PROTEIN 6.7 G/DL (5.7-8.2); TRIGLYCERIDES LEVEL 76 MG/DL (<150)
[2024-12-29 10:51] LABS: FREE T4 1.21 NG/DL (0.89-1.76)
[2024-12-29 10:52] LABS: THYROID STIMULATING HORMONE 1.306 uIU/ML (0.55-4.78); TOTAL 25(OH) VITAMIN D 67.4 NG/ML (20.0-100.0)
== END ==
LOC: M PLALAB 07:53
PROVIDERS: ATTEND Nurse Practitioner Adult Health
DX: Z00.00 Encounter for general adult medical examination without abnormal findings (principal); E78.2 Mixed hyperlipidemia; Z13.220 Encounter for screening for lipoid disorders; E55.9 Vitamin D deficiency, unspecified; R79.0 Abnormal level of blood mineral

== ENCOUNTER → 2025-03-14 | Outpatient (REF) | payer OTHER | LOC: M SFHCWAGY 13:40 | PROVIDERS: ATTEND Obstetrics & Gynecology | DX: N87.0 Mild cervical dysplasia (principal); N72 Inflammatory disease of cervix uteri ==

== ENCOUNTER → 2025-06-23 | Outpatient (CLI) | payer OTHER ==
[~2025-06-23] MED LIST changes: +PROHANCE 279.3MG/ML 15ML VIAL As Ordered ONE
== END ==
LOC: M RAD 15:28
PROVIDERS: ATTEND Obstetrics & Gynecology
DX: Z91.89 Other specified personal risk factors, not elsewhere classified (principal); R92.333 Mammographic heterogeneous density, bilateral breasts
CPT/HCPCS: A9576; C8908

== ENCOUNTER → 2025-07-21 | Outpatient (CLI) | payer OTHER ==
[~2025-07-21] MED LIST changes: -PROHANCE 279.3MG/ML 15ML VIAL As Ordered ONE
== END ==
LOC: M RAD 14:04
DX: L72.9 Follicular cyst of the skin and subcutaneous tissue, unspecified (principal); K40.90 Unilateral inguinal hernia, without obstruction or gangrene, not specified as recurrent

== ENCOUNTER → 2025-08-31 | Outpatient (REF) | payer OTHER ==
[~2025-08-31] MED LIST changes: +ACET1TAB55 PO; +CALC500T68 PO; +CYAN500T14 PO; +IBUP200C25 PO; +MAGN200T PO; +NIAC100T9 PO; +OMEP1CAP73 PO; +OSTETAB2 PO; +VITA-243 PO; +VITA100093 PO; +VITA100C15 PO
== END ==
LOC: M SFHCPLAZ 08:50
PROVIDERS: ATTEND Student in an Organized Health Care Education/Training Program
DX: Z53.9 Procedure and treatment not carried out, unspecified reason (principal)

== ENCOUNTER → 2025-08-31 | Outpatient (CLI) | payer OTHER ==
[2025-08-31 15:21] LABS: BASO # 0.0 10^3/uL (0.0-0.2); BASO % 0.8 % (0.0-1.0); EOS # 0.0 10^3/uL (0.0-0.5); EOS % 0.8 % (0.0-3.0); LYMPH # 2.0 10^3/uL (1.5-5.0); LYMPH % 39.0 % (24.0-44.0); MONO # 0.4 10^3/uL (0.0-0.8); MONO % 8.5 % (2.0-8.0); NEUTROPHILS # 2.6 10^3/uL (1.5-8.5); NEUTROPHILS % 50.7 % (36.0-66.0); PLATELET COUNT, AUTOMATED 315 10^3/uL (150-450)
[2025-08-31 15:22] LABS: CALCIUM LEVEL 9.7 MG/DL (8.5-10.1); CARBON DIOXIDE LEVEL 32 MMOL/L (20-31); CHLORIDE LEVEL 102 MMOL/L (98-107); CREATININE FOR GFR 0.71 MG/DL (0.55-1.30); GLOMERULAR FILTRATION RATE > 90.0 (>51); POTASSIUM SERUM 4.3 MMOL/L (3.5-5.1); SODIUM LEVEL 141 MMOL/L (136-145)
== END ==
LOC: M PLALAB 09:19
PROVIDERS: ATTEND Student in an Organized Health Care Education/Training Program
DX: Z01.818 Encounter for other preprocedural examination (principal)

== ENCOUNTER 2025-09-07 06:03 | Day surgery (SDC) | payer OTHER ==
[~2025-09-07] VITALS: Ht 162.6 cm; Wt 57.2 kg
[2025-09-07] MEDS ORDERED: LR 1,000 ML IV SCH (06:20)
[2025-09-07] MEDS: CelecoXIB 400 MG CAP PO ONE (06:36)
[2025-09-07] MEDS ORDERED: dexAMETHasone 4 MG/ML 1 ML VIAL As Ordered ONE (06:56)
[2025-09-07] MEDS ORDERED: ROCURONIUM BROMIDE 50MG/5ML VIAL As Ordered ONE (06:56)
[2025-09-07] MEDS ORDERED: ONDANSETRON 4MG 2ML VIAL As Ordered ONE (06:56)
[2025-09-07] MEDS ORDERED: LIDOCAINE 2% 100 MG/5 ML SDV (FOR ANES.) As Ordered ONE (06:58)
[2025-09-07] MEDS ORDERED: MIDAZOLAM INJ 2 MG/2 ML VIAL As Ordered ONE (07:03)
[2025-09-07] MEDS: ceFAZolin SOD 2 GM IV ONCE IV ONE (07:45)
[2025-09-07] MEDS ORDERED: ACETAMINOPHEN 1000MG/100ML IV BAG As Ordered ONE (08:39)
[2025-09-07] MEDS ORDERED: SUGAMMADEX SODIUM 200 MG/2 ML VIAL As Ordered ONE (08:44)
[2025-09-07] MEDS: LIDOCAINE 1% SDV 30 ML VIAL As Ordered ONE (09:15)
[2025-09-07] MEDS: ONDANSETRON 4MG 2ML VIAL IV PRN (09:52)
[2025-09-07] MEDS: HYDROMORPHONE HCL 0.5 MG/0.5 ML SYRINGE IV PRN (09:52)
[2025-09-07] MEDS: ROPIvacaine 0.5% 30ML VIAL PN ONE (10:50)
[2025-09-07 12:25] VITALS: BP 130/74; TEMP 97.9; O2SAT 99
== END 2025-09-07 12:30 | disposition home or self-care (01) ==
LOC: M SDC 06:03
PROVIDERS: ATTEND Surgery
DX: K40.91 Unilateral inguinal hernia, without obstruction or gangrene, recurrent (principal); J30.2 Other seasonal allergic rhinitis; Z88.2 Allergy status to sulfonamides; Z88.1 Allergy status to other antibiotic agents; K21.9 Gastro-esophageal reflux disease without esophagitis; Z79.899 Other long term (current) drug therapy
CPT/HCPCS: 49651; 88305; C1781; J0131; J0665; J0688; J1100; J1171; J2250; J2405; J2765; J2795; J3010; S2900

== ENCOUNTER → 2025-10-19 | Outpatient (REF) | payer OTHER ==
[~2025-10-19] MED LIST changes: +BLAC540C4 PO; +GINK120C3 PO; +NIAC100T3 PO; -NIAC100T9 PO; +SENN-186 PO; +ZINC50CA4 PO
== END ==
LOC: M WUC 19:05
PROVIDERS: ATTEND Student in an Organized Health Care Education/Training Program
DX: R30.0 Dysuria (principal)

== ENCOUNTER → 2025-10-24 | Outpatient (CLI) | payer OTHER ==
[~2025-10-24] MED LIST changes: +ISOVUE-370 76% 100 ML VIAL As Ordered ONE
== END ==
LOC: M RAD 09:26
PROVIDERS: ATTEND Internal Medicine Medical Oncology
DX: I89.0 Lymphedema, not elsewhere classified (principal)